=== PATIENT | male | born 1975 | race Caucasian/White ===

== ENCOUNTER 2017-03-16 08:09 | Emergency (ER) | payer BC ==
--- NOTE | 2017-03-16 08:41 | Emergency Department Record ---
History of Present Illness - General Chief complaint: Eye Problem Stated complaint: R EYE RED, ITCHING Time Seen by Provider: 03/16/17 08:35 Source: Patient Mode of Arrival: Ambulatory Limitations: No limitations - History of Present Illness Initial comments: The patient is here due to a one day hx of R eye itching and redness. He states it was stuck together this AM. He denies any visual changes or eye pain and does not wear contacts. chief complaint: Eye redness Onset/Timin -: Hour(s) Location: Right eye Place: Street/outdoors Eye Symptoms: Itching Context: Sore throat Treatments Prior to Arrival: None - Related Data Visual acuity (L) = 20/: 20 Visual acuity (R) = 20/: 20 With correction: No Hx Tetanus Toxoid Vaccination: No Previous Rx's Medication Instructions Recorded Sulfacetamide Sodium [Bleph-10] 1 - 2 drop AFFEYE QID #5 ml 03/16/17 Allergies Allergy/AdvReac Type Severity Reaction Status Date / Time No Known Drug Allergies Allergy Verified 03/16/17 08:29 Travel Screening - Travel/Exposure Within Last 30 Days Have you traveled within the last 30 days?: No - Travel/Exposure Within Last Year Have you traveled outside the [place] in the last year?: No - Additonal Travel Details Have you been exposed to anyone with a communicable illness?: No - Travel Symptoms Symptom Screening: None Review of Systems Constitutional: Denies: Chills, Fever Eyes: Reports: Eye discharge. Denies: Eye pain ENT: Denies: Congestion Respiratory: Denies: Cough, Dyspnea Past Medical History - SOCIAL HISTORY Smoking Status: Never smoker Alcohol Use: None Drug Use: None - RESPIRATORY Hx Respiratory Disorders: Yes Hx Asthma: Yes (exercise induced) - CARDIOVASCULAR Hx Cardio Disorders: No - NEURO Hx Neuro Disorders: Yes Comment:: concussion in july 08 - GI Hx GI Disorders: No - Hx Genitourinary Disorders: No - ENDOCRINE Hx Endocrine Disorders: No - MUSCULOSKELETAL Hx Musculoskeletal Disorders: No - PSYCH Hx Psych Problems: No - HEMATOLOGY/ONCOLOGY Hx Hematology/Oncology Disorders: No Family Medical History Any Significant Family History?: No Physical Exam - General General Appearance: Alert, Oriented x3, Cooperative, No acute distress - Head Head exam: Atraumatic, Normocephalic, Normal inspection - Eye Eye exam: PERRL, Conjunctival injection (Mod R eye.), EOMI, Other (The cornea is clear with neg flourescein uptake R eye.). negative: Normal appearance, Periorbital swelling, Periorbital tenderness With correction: No - ENT ENT exam: Normal orophraynx, TM's normal bilaterally. negative: Normal exam - Neck Neck exam: Normal inspection, Full ROM. negative: Tenderness Course Vital Signs 03/16/17 08:18 Temperature 97.5 F L Pulse Rate 72 Respiratory 16 Rate Blood Pressure 131/72 Pulse Ox 99 - Reevaluation(s) Reevaluation #1: I did discuss the dx of Conjunctivitis with the patient and the need for F/U. 03/16/17 08:52 Disposition Disposition: Discharge Clinical Impression: Conjunctivitis Qualifiers: Conjunctivitis type: acute Acute conjunctivitis type: unspecified Laterality: right Qualified Code(s): H10.31 - Unspecified acute conjunctivitis, right eye Disposition: Home, Self-Care Condition: (2) Stable Instructions: Conjunctivitis (ED) Additional Instructions: Please use the drops as directed. Please see your PCP or return to the ER if not better in 4-5 days and return sooner if worse. Prescriptions: Sulfacetamide Sodium [Bleph-10] 1 - 2 drop AFFEYE QID #5 ml Forms: Patient Portal Access Time of Disposition: 08:49 Quality - Quality Measures Quality Measures: N/A - Blood Pressure Screening View Details: Yes Does Patient Have Any of the Following: No Blood Pressure Classification: Pre-Hypertensive BP Reading Systolic Measurement: 131 Diastolic Measurement: 72 Screening for High Blood Pressure: < Pre-Hypertensive BP, F/U Documented > [ [id number]] Pre-Hypertensive Follow-up Interventions: Referral to alternative/primary care provider.
[2017-03-16] MEDS: PROPARACAINE HCL OPTH 15ML BTL OPTH ONE (09:00)
== END 2017-03-16 09:01 | disposition home or self-care (01) ==
LOC: ER 08:09
DX: H10.31 Unspecified acute conjunctivitis, right eye (principal)
CPT/HCPCS: 99282